=== PATIENT | male | born 2000 | race Caucasian/White ===

== ENCOUNTER 2023-02-08 05:24 | Emergency (ER) | payer BC, OTHER ==
[~2023-02-08] VITALS: Ht 177.8 cm; Wt 72.6 kg
[2023-02-08] MEDS ORDERED: KETOROLAC INJ 30 MG/ML VIAL IVP ONE (06:30)
--- NOTE | 2023-02-08 06:32 | ED General ---
General Chief Complaint: Head/Cervical Problems Stated Complaint: NECK PAIN,NAUSEA,SHAKING Nursing Triage Note: PT A&OX3; PT AMBULATES TO ROOM WITHOUT ASSISTANCE OF ER STAFF; PT ADVISES THAT HE WAS SLEEPING WHEN HE WAS SUDDENLY AWOKEN WITH PAIN AND TIGHTNESS IN HIS POSTERIOR NECK; PT REPORTS THAT HE HAS HAD THIS HAPPEN BEFORE BUT THAT IT USUALLY RESOLVES; PT REPORTS THAT TONIGHT HIS PAIN WAS SEVERE ENOUGH THAT HE BECAME NAUSEOUS AND VOMITED; PT TOOK OTC MEDICATIONS AND REPORTS SOME IMPROVEMENT IN SYMPTOMS Source of Information: Patient Exam Limitations: No Limitations History of Present Illness Date Seen by Provider: Feb 08, 2023 Time Seen by Provider: 06:02 Initial Comments This 22-year-old young man presents to the emergency room with primary complaint of pain in the posterior neck just inferior and posterior to the mastoid bilaterally. He woke with this pain early this morning around 0400. He had associated tremors which he calls "shivers", nausea, and vomiting. He took acetaminophen 500 mg as well as a combination tablet of acetaminophen 250 mg and caffeine 65 mg. He is feeling much better now. 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 He reports having similar episodes previously but not as severe and not that have woke him from sleep. Generally the episodes have happened in the morning after he wakes up. The nausea has passed. He is noted to be borderline tachycardic and hypertensive. He also reports problems with vertigo for years, especially when looking upward. 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 He does not generally do heavy lifting or strenuous work. He denies any tobacco or drug use. He reports typically drinking 4 days/week up to 8 beers at a time. Patient describes sometimes feeling palpitations and a sensation of needing to catch his breath during palpitations. Allergies and Home Medications Allergies Coded Allergies: No Known Drug Allergies (Unverified , 02/08/23) Patient Home Medication List Home Medication List Reviewed: Yes Review of Systems Review of Systems Constitutional: no symptoms reported EENTM: no symptoms reported Respiratory: see HPI Cardiovascular: see HPI Gastrointestinal: see HPI Genitourinary: no symptoms reported Musculoskeletal: see HPI Skin: no symptoms reported Psychiatric/Neurological: See HPI Hematologic/Lymphatic: No Symptoms Reported Immunological/Allergic: no symptoms reported Past Qtiyrye-Uuxbrt-Mveuah Hx Patient Social History Tobacco Use?: No Use of E-Cig and/or Vaping dev: No Substance use?: No Alcohol Use?: Yes Alcohol type: Beer Alcohol Frequency: Once in a while Pt feels they are or have been: No Immunizations Up To Date Influenza Vaccine Up-to-Date: No; Not Current First/Initial COVID19 Vaccinat: N/A Family Medical History Reviewed and Corrections made Psychiatric Problems (Brother is an alcoholic) Physical Exam Vital Signs Vital Signs - First Documented 02/08/23 05:33 Temp 36.5 Pulse 105 Resp 16 B/P (MAP) 143/101 (115) Pulse Ox 98 O2 Delivery Room Air Capillary Refill : Less Than 3 Seconds Height, Weight, BMI Height: '" Weight: lbs. oz. kg; 22.00 BMI Method: General Appearance: No Apparent Distress, WD/WN, Thin, Other (Distracted, sluggish historian) HEENT: PERRL/EOMI, Normal ENT Inspection, Pharynx Normal Neck: Normal Inspection, Tender Lateral (Tenderness in the posterior neck just inferior and posterior to the mastoids bilaterally. 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 Fine tremor noted in his hands. Normal hiin-wi-tync. Normal gait. Normal [id number].) Skin: Normal Color, Warm/Dry Progress/Results/Core Measures Suspected Sepsis SIRS Temperature: Pulse: 105 Respiratory Rate: 16 Laboratory Tests 02/08/23 06:24: White Blood Count 17.8H Blood Pressure 143 /101 Mean: 115 Laboratory Tests 02/08/23 06:24: Creatinine 0.87, Platelet Count 323, Total Bilirubin 3.4H Results/Orders Lab Results Laboratory Tests Test 02/08/23 06:24 Range/Units White Blood Count 17.8 H 4.3-11.0 10^3/uL Red Blood Count 4.79 4.30-5.52 10^6/uL Hemoglobin 15.1 13.3-17.7 g/dL Hematocrit 43 40-54 % Mean Corpuscular Volume 89 80-99 fL Mean Corpuscular Hemoglobin 32 25-34 pg Mean Corpuscular Hemoglobin Concent 35 32-36 g/dL Red Cell Distribution Width 12.5 10.0-14.5 % Platelet Count 323 130-400 10^3/uL Mean Platelet Volume 9.5 9.0-12.2 fL Immature Granulocyte % (Auto) 0 % Neutrophils (%) (Auto) 81 H 42-75 % Lymphocytes (%) (Auto) 9 L 12-44 % Monocytes (%) (Auto) 8 0-12 % Eosinophils (%) (Auto) 1 0-10 % Basophils (%) (Auto) 0 0-10 % Neutrophils # (Auto) 14.4 H 1.8-7.8 10^3/uL Lymphocytes # (Auto) 1.7 1.0-4.0 10^3/uL Monocytes # (Auto) 1.4 H 0.0-1.0 10^3/uL Eosinophils # (Auto) 0.2 0.0-0.3 10^3/uL Basophils # (Auto) 0.1 0.0-0.1 10^3/uL Immature Granulocyte # (Auto) 0.1 0.0-0.1 10^3/uL Sodium Level 142 135-145 MMOL/L Potassium Level 3.3 L 3.6-5.0 MMOL/L Chloride Level 107 98-107 MMOL/L Carbon Dioxide Level 23 21-32 MMOL/L Anion Gap 12 5-14 MMOL/L Blood Urea Nitrogen 16 7-18 MG/DL Creatinine 0.87 0.60-1.30 MG/DL Estimat Glomerular Filtration Rate 124 BUN/Creatinine Ratio 18 Glucose Level 109 H 70-105 MG/DL Calcium Level 9.8 8.5-10.1 MG/DL Corrected Calcium 8.5-10.1 MG/DL Magnesium Level 2.0 1.6-2.4 MG/DL Total Bilirubin 3.4 H 0.1-1.0 MG/DL Aspartate Amino Transf (AST/SGOT) 18 5-34 U/L Alanine Aminotransferase (ALT/SGPT) 16 0-55 U/L Alkaline Phosphatase 67 40-136 U/L Total Protein 7.6 6.4-8.2 GM/DL Albumin 5.0 H 3.2-4.5 GM/DL Serum Alcohol < 10 <10 MG/DL My Orders Orders - PURVI KNAPP MD Alcohol (02/08/23 06:17) Cbc With Automated Diff (02/08/23 06:17) Comprehensive Metabolic Panel (02/08/23 06:17) Magnesium (02/08/23 06:17) Ed Iv/Invasive Line Start (02/08/23 06:17) Ketorolac Injection (Ketorolac Injection (02/08/23 06:30) Manual Differential (02/08/23 06:24) Hs C Reactive Protein (02/08/23 07:13) Potassium Chloride (Tablet) (Potassium C (02/08/23 07:15) Ondansetron Injection (Ondansetron Inj (02/08/23 07:15) Medications Given in ED Current Medications Medications Dose Ordered Sig/Gal Route Start Time Stop Time Status Last Admin Dose Admin Ketorolac Tromethamine 30 mg ONCE ONCE IVP 02/08/23 06:30 02/08/23 06:31 DC 02/08/23 06:36 30 MG Ondansetron HCl 4 mg ONCE ONCE IVP 02/08/23 07:15 02/08/23 07:16 DC 02/08/23 07:20 4 MG Potassium Chloride 20 meq ONCE ONCE PO 02/08/23 07:15 02/08/23 07:16 DC 02/08/23 07:20 20 MEQ Vital Signs/I&O 02/08/23 02/08/23 05:33 07:05 Temp 36.5 Pulse 105 84 Resp 16 16 B/P (MAP) 143/101 (115) 132/94 (107) Pulse Ox 98 100 O2 Delivery Room Air Room Air Capillary Refill : Less Than 3 Seconds Blood Pressure Mean: 115 Progress Note #1: Time: 07:33 Progress Note Patient was interviewed and examined at 0602. Door to doctor time was prolonged as patient was stable during nursing triage and outgoing provider was deferring assessment to the oncoming physician at shift change. Patient was no longer feeling nauseated and did not feel he needed treatment. He was noted to be hypertensive and borderline tachycardic. This brought alcohol withdrawal into question. Labs were obtained including CBC, CMP, magnesium, and serum alcohol concentration. CBC was notable for leukocytosis of 17.8 with a neutrophil predominance. CMP was notable for bilirubin of 3.4 and potassium of 3.3. Magnesium was normal. The remainder of chemistry studies were unremarkable. Serum alcohol was undetectable. Patient has now been treated with oral potassium 20 mEq and Zofran to prevent nausea and vomiting with the potassium. I have discussed his lab findings and their potential significance. CRP has been added to further evaluate for possible infectious causes. I have interviewed the patient again and he describes no symptoms suspicious for infectious illness. We talked about his significant alcohol consumption and the potential health consequences. He reports frequent problems with nausea and refluxing into his throat. He and I agree this is likely related to his alcohol consumption. He feels his heavy alcohol consumption is largely related to his social environment and his housemates with frequent social activities involving alcohol consumption. He also states that his brother is an alcoholic and he has concerns regarding the potential for problems related to alcohol use. Patient's girlfriend arrives. She is masked and has apparent laryngitis. Given this exposure, he may additionally have a viral syndrome contributing to his symptoms. Progress Note #2: Time: 07:54 Progress Note CRP was normal indicating his leukocytosis is likely reactive from vomiting rather than bacterial infection. Patient remained stable. See discharge instructions for further discussion. Departure Impression Primary Impression: Neck pain Additional Impressions: Nausea & vomiting Qualified Codes: R11.2 - Nausea with vomiting, unspecified Hypokalemia Regular alcohol consumption Vertigo Disposition: 01 HOME, SELF-CARE Condition: Improved Departure-Patient Inst. Decision time for Depature: 07:39 Referrals: ALTHEA TRIMBLE MD (PCP/Family) Primary Care Physician Add. Discharge Instructions: Start with a noncarbonated clear liquid diet this morning and gradually advance your diet with small quantities of bland food as tolerated. Use the Zofran (ondansetron) as prescribed for nausea or vomiting. Take an antacid medication such as omeprazole (Prilosec) 20 mg daily or famotidine (Pepcid) 20 mg twice daily. Use 1 of these medications daily for at least 2 weeks, even if you are feeling better. This will allow your stomach and esophagus time to heal. These medications may be purchased [id number] or with the prescription sent to the pharmacy, which ever is most cost effective for you. Avoid the following: Eating large meals, eating close to bedtime, caffeine, carbonation, citrus fruits and juices, tomato products, chocolate, mints, tobacco, alcohol, spicy foods, fatty/greasy foods, NSAID medications such as ibuprofen or naproxen, illicit substances such as marijuana or other recreational drugs, or anything else you know irritates your stomach. The more exposure you have to these things, the more likely you are to have problems with your stomach and esophagus. Decrease your alcohol consumption significantly to prevent serious long-term health consequences. Keep your alcohol consumption to no more than 2 beers, 1 shot, or one 4 ounce glass of wine in a 24-hour period of time and drink no more than 2 days/week. If you are unable to maintain this level of moderation, please seek assistance from your doctor or another substance abuse treatment resources. This is especially important because you have a family history of alcoholism. For your neck pain try using Tylenol (acetaminophen) up to 1000 mg every 6 hours as needed. If you need to add NSAID medications such as ibuprofen or naproxen, be sure to take them with food or milk to avoid stomach upset and continue to take an acid medication as above. Gentle stretching of your neck muscles may be helpful. Gentle heat to help those muscles relax may also be helpful. Please call your doctors office today to schedule a follow-up appointment. You should be seen in 2 or 3 weeks. Give your doctor an update on your efforts to reduce alcohol consumption and the dietary changes recommended above. Monitor your symptoms such as acid reflux, nausea, and vertigo. If possible, keep a log of those symptoms to present to your doctor in follow-up. Also discussed your elevated white blood cell count. Your white blood cell count was 17.8 in the ER today. This should be repeated at your primary care doctor's discretion to ensure it returns back to normal. Your CRP (inflammatory marker) was normal indicating your high white blood cell count is not likely due to a bacterial infection. You should also discuss your episodes of vertigo and neck pain with your doctor. Bring these discharge instructions with you to that follow-up appointment. Return to the ER if you have worsening or repeated symptoms despite following these instructions. All discharge instructions reviewed with patient and/or family. Voiced understanding. Scripts Omeprazole (Omeprazole) 20 Mg Tablet. 20 MG PO DAILY, #30 TAB Prov: PURVI KNAPP MD 02/08/23 Ondansetron (Ondansetron Odt) 4 Mg Tab.rapdis 4 MG SL Q4H PRN for NAUSEA/VOMITING, #10 TAB Prov: PURVI KNAPP MD 02/08/23 Work/School Note: Work Release Form Date Seen in the Emergency Department: Feb 08, 2023 Return to Work: Feb 08, 2023 Restrictions: No Restrictions Other Restrictions Listed Below: May return to work late morning . PURVI KNAPP MD Feb 08, 2023 06:32
[2023-02-08 06:34] LABS: BASOPHILS # (AUTO) 0.1 10^3/uL (0.0-0.1); BASOPHILS % (AUTO) 0 % (0-10); EOSINOPHILS # (AUTO) 0.2 10^3/uL (0.0-0.3); EOSINOPHILS % (AUTO) 1 % (0-10); HEMATOCRIT 43 % (40-54); HEMOGLOBIN 15.1 g/dL (13.3-17.7); LYMPHOCYTES # (AUTO) 1.7 10^3/uL (1.0-4.0); LYMPHOCYTES % (AUTO) 9 % (12-44); MEAN CORPUSCULAR HEMOGLOBIN 32 pg (25-34); MEAN CORPUSCULAR HGB CONC 35 g/dL (32-36); MEAN CORPUSCULAR VOLUME 89 fL (80-99); MEAN PLATELET VOLUME 9.5 fL (9.0-12.2); MONOCYTES # (AUTO) 1.4 10^3/uL (0.0-1.0); MONOCYTES % (AUTO) 8 % (0-12); NEUTROPHILS # (AUTO) 14.4 10^3/uL (1.8-7.8); NEUTROPHILS % (AUTO) 81 % (42-75); PLATELET COUNT 323 10^3/uL (130-400); WHITE BLOOD COUNT 17.8 10^3/uL (4.3-11.0)
[2023-02-08 06:37] LABS: CHLORIDE 107 MMOL/L (98-107); POTASSIUM 3.3 MMOL/L (3.6-5.0); SODIUM 142 MMOL/L (135-145)
[2023-02-08 06:38] LABS: CALCIUM 9.8 MG/DL (8.5-10.1)
[2023-02-08 06:39] LABS: GLUCOSE 109 MG/DL (70-105)
[2023-02-08 06:40] LABS: CARBON DIOXIDE 23 MMOL/L (21-32); TOTAL PROTEIN 7.6 GM/DL (6.4-8.2)
[2023-02-08 06:41] LABS: BILIRUBIN,TOTAL 3.4 MG/DL (0.1-1.0)
[2023-02-08 06:43] LABS: ALKALINE PHOSPHATASE 67 U/L (40-136); CREATININE SERUM 0.87 MG/DL (0.60-1.30); GFR ESTIMATED 124
[2023-02-08 06:44] LABS: BUN/CREATININE RATIO 18
[2023-02-08 06:46] LABS: ALANINE AMINOTRANSFERASE 16 U/L (0-55)
[2023-02-08] MEDS ORDERED: POTASSIUM CHLORIDE 10 MEQ TABLET PO ONE (07:15)
[2023-02-08] MEDS ORDERED: ONDANSETRON INJECTION 4 MG/2 ML (SDV) IVP ONE (07:15)
[2023-02-08 07:40] LABS: BAND NEUTROPHILS 1 %; BASOPHILS % (MANUAL) 1 %; EOSINOPHILS % (MANUAL) 1 %; LYMPHOCYTES % (MANUAL) 8 %; MONOCYTES % (MANUAL) 4 %; NEUTROPHILS % (MANUAL) 85 %; RBC MORPH NORMAL
[2023-02-08] MEDS ORDERED: ONDA4TAB11 SL (07:43)
[2023-02-08] MEDS ORDERED: OMEP20TA56 PO (07:51)
[2023-02-08 08:01] VITALS: BP 139/84
== END 2023-02-08 08:01 | disposition home or self-care (01) ==
LOC: EDUNIT# 05:24 → ER 05:28
DX: M54.2 Cervicalgia (principal); E87.6 Hypokalemia; F10.20 Alcohol dependence, uncomplicated; Z28.310 Unvaccinated for COVID-19
CPT/HCPCS: 80053; 83735; 85007; 85027; 86141; 99284; G0480; 36415; 80320